=== PATIENT | female | born 1985 | race Two or more races ===

== ENCOUNTER 2020-12-11 14:45 | Inpatient (IN) | payer OTHER ==
[~2020-12-11] VITALS: Ht 154.9 cm; Wt 67.6 kg
[2020-12-24] MEDS ORDERED: OBTREX DHA COM1 EACH (11:33)
== END 2020-12-27 18:46 | disposition home or self-care (01) | DRG 788 ==
LOC: LDR 12-24 10:32 → SURG-SUITE 12-24 10:32 → O/R 12-24 21:13 → SURG-SUITE 12-24 22:09 → LDR 12-28 14:45
PROVIDERS: ADMIT Obstetrics & Gynecology Maternal & Fetal Medicine; ATTEND Obstetrics & Gynecology Maternal & Fetal Medicine
PROC: 10907ZC Drainage of Amniotic Fluid, Therapeutic from Products of Conception, Via Natural or Artificial Opening (ICD-10-PCS; 2020-12-24)
PROC: 3E033VJ Introduction of Other Hormone into Peripheral Vein, Percutaneous Approach (ICD-10-PCS; 2020-12-24)
PROC: 4A1HXFZ Monitoring of Products of Conception, Cardiac Rhythm, External Approach (ICD-10-PCS; 2020-12-24)
PROC: 10D00Z1 Extraction of Products of Conception, Low, Open Approach (ICD-10-PCS; principal; 2020-12-24 19:00)
DX: O62.1 Secondary uterine inertia (principal); O64.0XX0 Obstructed labor due to incomplete rotation of fetal head, not applicable or unspecified; Z3A.39 39 weeks gestation of pregnancy; Z37.0 Single live birth